=== PATIENT | male | born 1965 | race Caucasian/White ===

== ENCOUNTER 2020-12-24 09:26 | Inpatient (IN) | payer BC ==
[2020-12-24] MEDS ORDERED: SODIUM CHLORIDE 0.9% 500 ML 500 ML IV STA (09:51)
--- NOTE | 2020-12-24 09:51 | ED ---
General Adult HPI - General Chief complaint: Arrhythmia/Palpitations Stated complaint: A fib, chest pain Time Seen by Provider: 12/24/20 09:30 Source: patient, RN notes reviewed, old records reviewed Mode of arrival: ambulatory Limitations: no limitations - History of Present Illness Initial comments: This is a 55-year-old male presents emergency Department complaining that he is in atrial fibrillation again. Patient states he was diagnosed with A. fib about 20 years ago but never put on any medication. Patient states occasionally goes and out of it but this morning was at 160 beats a minute so he became concerned. Patient states he woke up this morning was nauseated and vomited times one and then noticed his heart racing. Patient states is not short of breath or having any difficulty breathing. Patient denies any abdominal pain. Patient denies any nausea currently. Patient denies any recent fever chills or cough. Patient states she's nervous about the A. fib going real fast scan because he has to go to work. The patient's pulses about 115. - Related Data Home Medications Medication Instructions Recorded Confirmed Dextroamphetamine/Amphetamine 20 mg PO BID 12/24/20 12/24/20 [Adderall] INSULIN ASPART (NovoLOG) [NovoLOG 10 unit SQ AC-TID 12/24/20 12/24/20 (formulary)] Insulin Glargine [Lantus Vial] 50 unit SQ HS 12/24/20 12/24/20 predniSONE 10 mg PO DAILY 12/24/20 12/24/20 Allergies Allergy/AdvReac Type Severity Reaction Status Date / Time No Known Allergies Allergy Verified 12/24/20 10:52 Review of Systems ROS Statement: Those systems with pertinent positive or pertinent negative responses have been documented in the HPI. ROS Other: All systems not noted in ROS Statement are negative. Past Medical History Past Medical History: Atrial Fibrillation, Diabetes Mellitus History of Any Multi-Drug Resistant Organisms: None Reported Past Surgical History: Appendectomy, Orthopedic Surgery Additional Past Surgical History / Comment(s): R hip Past Psychological History: No Psychological Hx Reported Smoking Status: Current every day smoker Past Alcohol Use History: None Reported Past Drug Use History: Marijuana General Exam - General Exam Comments Initial Comments: GENERAL: Patient is well-developed and well-nourished. Patient is nontoxic and well- hydrated and is in mild distress. ENT: Neck is soft and supple. No significant lymphadenopathy is noted. Oropharynx is clear. Moist mucous membranes. Neck has full range of motion without eliciting any pain. EYES: The sclera were anicteric and conjunctiva were pink and moist. Extraocular movements were intact and pupils were equal round and reactive to light. Eyelids were unremarkable. PULMONARY: Unlabored respirations. Good breath sounds bilaterally. No audible rales rhonchi or wheezing was noted. CARDIOVASCULAR: Patient's heart rates about 115 beats a minute and it is irregular. ABDOMEN: Soft and nontender with normal bowel sounds. SKIN: Skin is clear with no lesions or rashes and otherwise unremarkable. NEUROLOGIC: Patient is alert and oriented x3. Cranial nerves II through XII are grossly intact. Motor and sensory are also intact. Normal speech, volume and content. Symmetrical smile. MUSCULOSKELETAL: Normal extremities with adequate strength and full range of motion. LYMPHATICS: No significant lymphadenopathy is noted PSYCHIATRIC: Normal psychiatric evaluation. Limitations: no limitations Course Vital Signs 12/24/20 12/24/20 09:32 10:10 Temperature 98 F Pulse Rate 103 H 92 Respiratory 18 18 Rate Blood Pressure 115/67 111/78 O2 Sat by Pulse 99 98 Oximetry Medical Decision Making - Medical Decision Making EKG shows atrial fibrillation with occasional PVC at 91 bpm QRS is 80 QT interval is 226 QTC is 364. Patient has some peaked T waves in the precordial leads. Patient's chest x-ray shows a large bleb in the left upper lobe I spoke with Dr. Spencer she agreed to admit the patient admitted the patient wrote admitting orders. I started the patient on Cardizem and heparin. I continued Cardizem floor. - Lab Data Result diagrams: 12/24/20 09:58 12/24/20 09:58 Lab Results 12/24/20 12/24/20 12/24/20 Range/Units 09:58 09:58 09:58 WBC 10.7 H (3.8-10.6) k/uL RBC 4.74 (4.30-5.90) m/uL Hgb 15.5 (13.0-17.5) gm/dL Hct 46.0 (39.0-53.0) % MCV 97.1 (80.0-100.0) fL MCH 32.7 (25.0-35.0) pg MCHC 33.7 (31.0-37.0) g/dL RDW 12.8 (11.5-15.5) % Plt Count 412 (150-450) k/uL MPV 7.5 Neutrophils % 60 % Lymphocytes % 30 % Monocytes % 5 % Eosinophils % 3 % Basophils % 1 % Neutrophils # 6.3 (1.3-7.7) k/uL Lymphocytes # 3.2 (1.0-4.8) k/uL Monocytes # 0.5 (0-1.0) k/uL Eosinophils # 0.3 (0-0.7) k/uL Basophils # 0.1 (0-0.2) k/uL PT 9.5 (9.0-12.0) sec INR 0.9 (<1.2) APTT 21.7 L (22.0-30.0) sec Sodium 134 L (137-145) mmol/L Potassium 4.3 (3.5-5.1) mmol/L Chloride 101 (98-107) mmol/L Carbon Dioxide 27 (22-30) mmol/L Anion Gap 6 mmol/L BUN 14 (9-20) mg/dL Creatinine 0.74 (0.66-1.25) mg/dL Est GFR (CKD-EPI)AfAm >90 (>60 ml/min/1.73 sqM) Est GFR (CKD-EPI)NonAf >90 (>60 ml/min/1.73 sqM) Glucose 257 H (74-99) mg/dL Calcium 9.9 (8.4-10.2) mg/dL Magnesium 1.8 (1.6-2.3) mg/dL Total Bilirubin 0.5 (0.2-1.3) mg/dL AST 19 (17-59) U/L ALT 10 (4-49) U/L Alkaline Phosphatase 93 (38-126) U/L Troponin I (0.000-0.034) ng/mL Total Protein 6.6 (6.3-8.2) g/dL Albumin 3.8 (3.5-5.0) g/dL TSH 1.210 (0.465-4.680) mIU/L 12/24/20 Range/Units 09:58 WBC (3.8-10.6) k/uL RBC (4.30-5.90) m/uL Hgb (13.0-17.5) gm/dL Hct (39.0-53.0) % MCV (80.0-100.0) fL MCH (25.0-35.0) pg MCHC (31.0-37.0) g/dL RDW (11.5-15.5) % Plt Count (150-450) k/uL MPV Neutrophils % % Lymphocytes % % Monocytes % % Eosinophils % % Basophils % % Neutrophils # (1.3-7.7) k/uL Lymphocytes # (1.0-4.8) k/uL Monocytes # (0-1.0) k/uL Eosinophils # (0-0.7) k/uL Basophils # (0-0.2) k/uL PT (9.0-12.0) sec INR (<1.2) APTT (22.0-30.0) sec Sodium (137-145) mmol/L Potassium (3.5-5.1) mmol/L Chloride (98-107) mmol/L Carbon Dioxide (22-30) mmol/L Anion Gap mmol/L BUN (9-20) mg/dL Creatinine (0.66-1.25) mg/dL Est GFR (CKD-EPI)AfAm (>60 ml/min/1.73 sqM) Est GFR (CKD-EPI)NonAf (>60 ml/min/1.73 sqM) Glucose (74-99) mg/dL Calcium (8.4-10.2) mg/dL Magnesium (1.6-2.3) mg/dL Total Bilirubin (0.2-1.3) mg/dL AST (17-59) U/L ALT (4-49) U/L Alkaline Phosphatase (38-126) U/L Troponin I <0.012 (0.000-0.034) ng/mL Total Protein (6.3-8.2) g/dL Albumin (3.5-5.0) g/dL TSH (0.465-4.680) mIU/L Critical Care Time Critical Care Time: Yes Total Critical Care Time: 35 Disposition Clinical Impression: Atrial fibrillation with rapid ventricular response Disposition: ADMITTED IP TO THIS [facility] Referrals: Christina Epps MD [Primary Care Provider] - 1-2 days Time of Disposition: 11:49
[2020-12-24 10:18] LABS: Basophils # (A) 0.1 k/uL (0-0.2); Basophils % (A) 1 %; Eosinophils # (A) 0.3 k/uL (0-0.7); Eosinophils % (A) 3 %; HGB 15.5 gm/dL (13.0-17.5); Lymphocytes # (A) 3.2 k/uL (1.0-4.8); Lymphocytes % (A) 30 %; MCH 32.7 pg (25.0-35.0); MCHC 33.7 g/dL (31.0-37.0); MCV 97.1 fL (80.0-100.0); Mean Platelet Volume 7.5; Monocytes # (A) 0.5 k/uL (0-1.0); Monocytes % (A) 5 %; Neutrophils # (A) 6.3 k/uL (1.3-7.7); Neutrophils % (A) 60 %; Platelet Count 412 k/uL (150-450); RBC 4.74 m/uL (4.30-5.90); RDW 12.8 % (11.5-15.5); WBC 10.7 k/uL (3.8-10.6)
[2020-12-24 10:25] LABS: ALT 10 U/L (4-49); AST 19 U/L (17-59); African American GFR (CKD) >90 (>60 ml/min/1.73 sqM); Albumin 3.8 g/dL (3.5-5.0); Alkaline Phosphatase 93 U/L (38-126); Anion Gap 6 mmol/L; Blood Urea Nitrogen 14 mg/dL (9-20); Calcium 9.9 mg/dL (8.4-10.2); Carbon Dioxide 27 mmol/L (22-30); Chloride 101 mmol/L (98-107); Glucose 257 mg/dL (74-99); Magnesium 1.8 mg/dL (1.6-2.3); Non-African American GFR(CKD) >90 (>60 ml/min/1.73 sqM); Potassium 4.3 mmol/L (3.5-5.1); Sodium 134 mmol/L (137-145); Total Bilirubin 0.5 mg/dL (0.2-1.3); Total Protein 6.6 g/dL (6.3-8.2)
[2020-12-24 10:40] LABS: INR 0.9 (<1.2); Prothrombin Time 9.5 sec (9.0-12.0)
[2020-12-24 10:48] LABS: Partial Thromboplastin Time 21.7 sec (22.0-30.0)
[2020-12-24] MEDS ORDERED: HEPARIN SODIUM 1,000 UN/ML (10ML VL) IV ONE (10:56)
[2020-12-24] MEDS ORDERED: DILTIAZEM 125 MG in SODIUM CHLORIDE 0.9% 100 ML IV SCH (11:00)
[2020-12-24] MEDS ORDERED: HEPARIN SOD,PORK IN 0.45% NACL 25,000 UNIT in 0.45% NACL 1 250ML.BAG IV SCH (11:00)
--- NOTE | 2020-12-24 11:27 | XR ---
EXAMINATION TYPE: XR chest 2V DATE OF EXAM: 12/24/2020 COMPARISON: NONE HISTORY: Dysrhythmia and shortness of breath TECHNIQUE: Frontal and lateral views of the chest are obtained. FINDINGS: Apical bullous disease is greater on the left than on the right. Prominent lung findings a re consistent with underlying COPD. No evident airspace disease, pneumothorax, or pleural effusion. S uspect scarring present within the lungs. Heart is small. There are overlying leads. IMPRESSION: Emphysema
[2020-12-24] MEDS ORDERED: NITROGLYCERIN SL TABS 0.4 MG TAB SUBLINGUAL PRN (11:50)
[2020-12-24] MEDS: NITROGLYCERIN OINT 1 INCH/GM PACKET TOPICAL SCH ×3 (12:12→22:44)
[2020-12-24 12:18] LABS: Amphetamine Screen,Urine Detected (NotDetected); Barbiturate Screen,Urine Not Detected (NotDetected); Benzodiazepines Screen,Urine Not Detected (NotDetected); Cocaine Screen,Urine Not Detected (NotDetected); Methadone Screen, Urine Not Detected (NotDetected); Opiate Screen,Urine Not Detected (NotDetected); Oxycodone Screen, Urine Not Detected (NotDetected); Phencyclidine Screen,Urine Not Detected (NotDetected); Tricyclic Antidepressant,Urine Not Detected (NotDetected); Urn Cannabinoid Scrn Detected (NotDetected)
[2020-12-24 17:29] LABS: Glucose,Whole Blood 162 mg/dL (75-99)
[2020-12-24] MEDS: INSULIN ASPART (NovoLOG) 100 UNIT/ML VIAL SQ SCH ×3 (18:11→20:44)
[2020-12-24] MEDS ORDERED: IPRATROPIUM-ALBUTEROL 3 ML NEB INHALATION PRN (19:49)
[2020-12-24] MEDS ORDERED: HEPARIN SODIUM 1,000 UN/ML (10ML VL) IV PRN (19:51)
--- NOTE | 2020-12-24 20:22 | P.HPIM ---
<Murphy Yuan - Last Filed: 12/24/20 19:43> History of Present Illness H&P Date: 12/24/20 History of Presenting Illness: Patient is a 55-year-old male with a past medical history of COPD not home oxygen dependent, paroxysmal atrial fibrillation not on anticoagulation, insulin-dependent diabetes mellitus, ADHD, nicotine dependence, and marijuana use. He presented to the emergency department with a chief complaint of nausea and vomiting. Patient reports awakening this morning and not feeling right, he reports nausea followed by episode of vomiting and realized that his heart was racing and was concerned that he was back into atrial fibrillation. Patient reports he has been in and out of atrial fibrillation for over 20 years. He was seen and fully evaluated in the emergency department and initially found to be in atrial fibrillation with RVR and reported rate greater than 120. EKG showing atrial fibrillation at 91 bpm. Chest x-ray negative for acute cardiopulmonary process positive for COPD with large left upper lobe bleb. Labs reviewed, CBC revealing mild leukocytosis with WBC count of 10.7, BMP showing pseudohyponatremia with sodium 134, and glucose of 257 with corrected sodium of 137. Troponins trended and were negative at less than 0.0123 draws. Urine drug screen positive for amphetamines and marijuana. Covid PCR negative. Patient was started on heparin infusion and Cardizem infusion and the emergency department and admitted for services with consultation to cardiology. Upon examination at bedside, patient denied having any current complaints at this time. He reports nausea has resolved and denies having any headache, lightheadedness, dizziness, changes in vision or hearing, chest pain or palpitations, shortness of breath, or experiencing any numbness/tingling/weakness in his extremities. Patient denies having any recent illnesses/infections. Denies daily alcohol use, reports occasional marijuana use, denies any other drug use. Review of systems: Pertinent positives and negatives as discussed in HPI, a complete review of systems was performed and all other systems are negative. Physical exam: Vital signs reviewed and stable. General: Nontoxic, no distress and appears stated age. Derm: Skin warm and dry, normal coloration for ethnicity. Head: Atraumatic, normocephalic and symmetric. Eyes: EOMs intact, no lid lag, and anicteric sclera Mouth: no lip lesions, mucus membranes moist Cardiovascular: Irregularly irregular rhythm, normal S1S2, no murmur, positive posterior tibial pulses bilaterally, and cap refill < 2 seconds. Lungs: Respirations even, regular, and unlabored on room air. Lungs diminished, however no rhonchi, no rales, no wheezing, and no accessory muscle usage. Abdominal: soft, nontender to palpation, no guarding, no appreciable organomegaly Ext: ROM intact. No gross muscle atrophy, no edema, no contractures Neuro: Speech clear, face symmetrical and CN II-XII grossly intact with no noted focal neuro deficits Psych: Alert and oriented to person, place, time, and situation. Appropriate and pleasant affect. Assessment and Plan of Care: Atrial fibrillation with RVR -[id number] Score 1 -Pt started on Heparin infusion, we will continue at this time and defer decision of tank terminal gauger anticoagulation to cardiology. -Continue Cardizem infusion -Continuous telemetry monitoring -Consult placed cardiology, appreciate further recommendations -Echocardiogram COPD not in acute exacerbation -Continue daily prednisone 10 mg -DuoNeb as needed for wheezing and/or shortness of breath -Incentive spirometry Insulin-dependent diabetes mellitus -Glycemic protocol and continue NovoLog 10 units 3 times daily with meals, Levemir 50 units nightly, and place patient on sliding scale to maintain tight glycemic control throughout hospitalization. ADHD Hold Adderall at this time, discussed with patient possibility of medication changes as he may need a non-stimulant medication. Nicotine dependence Continue to provide education and encouragement on the importance of smoking cessation and risks of continued use. Nicotine patch Marijuana use continue to encourage and educate on the importance of cessation and risks of continued use with long-standing COPD/emphysema. The patient is admitted with an anticipated greater than 2 midnight stay for evaluation of atrial fibrillation with RVR CODE STATUS: Full code DVT prophylaxis: Heparin Discussed with: Patient Anticipated discharge date: Clinical course to determine Anticipated discharge place: Home A total of 45 minutes was spent on the care of this complex patient more than 50% of the time was spent in counseling and care coordination. Past Medical History Past Medical History: Atrial Fibrillation, Diabetes Mellitus History of Any Multi-Drug Resistant Organisms: None Reported Past Surgical History: Appendectomy, Orthopedic Surgery Additional Past Surgical History / Comment(s): R hip Past Psychological History: No Psychological Hx Reported Smoking Status: Current every day smoker Past Alcohol Use History: None Reported Past Drug Use History: Marijuana Medications and Allergies Home Medications Medication Instructions Recorded Confirmed Type Dextroamphetamine/Amphetamine 20 mg PO BID 12/24/20 12/24/20 History [Adderall] INSULIN ASPART (NovoLOG) [NovoLOG 10 unit SQ AC-TID 12/24/20 12/24/20 History (formulary)] Insulin Glargine [Lantus Vial] 50 unit SQ HS 12/24/20 12/24/20 History predniSONE 10 mg PO DAILY 12/24/20 12/24/20 History Allergies Allergy/AdvReac Type Severity Reaction Status Date / Time No Known Allergies Allergy Verified 12/24/20 10:52 Physical Exam Vitals: Vital Signs Temp Pulse Resp BP Pulse Ox 12/24/20 10:10 92 18 111/78 98 12/24/20 09:32 98 F 103 H 18 115/67 99 Intake and Output 12/23/20 12/24/20 12/24/20 22:59 06:59 14:59 Other: Weight 74.843 kg Results CBC & Chem 7: 12/24/20 09:58 12/24/20 09:58 Labs: Abnormal Lab Results - Last 24 Hours (Table) 12/24/20 12/24/20 12/24/20 Range/Units 09:58 09:58 09:58 WBC 10.7 H (3.8-10.6) k/uL APTT 21.7 L (22.0-30.0) sec Sodium (137-145) mmol/L Glucose (74-99) mg/dL Ur Amphetamines Screen Detected H (NotDetected) U Marijuana (THC) Screen Detected H (NotDetected) 12/24/20 Range/Units 09:58 WBC (3.8-10.6) k/uL APTT (22.0-30.0) sec Sodium 134 L (137-145) mmol/L Glucose 257 H (74-99) mg/dL Ur Amphetamines Screen (NotDetected) U Marijuana (THC) Screen (NotDetected) <Matthew Marrero - Last Filed: 12/25/20 01:35> History of Present Illness Patient seen and examined independently. Patient was also seen by Murphy Yuan NP and case was discussed. I am in agreement with subjective, physical exam, assessment and plan as written above and amended below. General: [non toxic], [no distress], [appears at stated age] Derm: [warm], [dry] Head: [atraumatic], [normocephalic], [symmetric] Eyes: [EOMI], [no lid lag], [anicteric sclera] Mouth: [no lip lesion], [mucus membranes moist] Cardiovascular: Irregularly irregular, [no murmur], [positive posterior tibial pulse bilateral], Lungs: [CTA bilateral], [no rhonchi, no rales] , [no accessory muscle use] Abdominal: [soft], [ nontender to palpation], [no guarding], [no appreciable organomegaly] Ext: [no gross muscle atrophy], [no edema], [no contractures] Neuro: [ CN II-XI grossly intact], [no focal neuro deficits] Psych: [Alert], [oriented], [appropriate affect] Physical Exam Vitals: Vital Signs Temp Pulse Pulse Resp BP BP Pulse Ox 12/24/20 23:49 97.8 F 83 16 108/63 97 12/24/20 20:00 97.9 F 98 16 119/79 99 12/24/20 15:35 84 20 101/77 98 12/24/20 12:30 95 18 112/77 98 12/24/20 10:10 92 18 111/78 98 12/24/20 09:32 98 F 103 H 18 115/67 99 Intake and Output 12/24/20 12/24/20 12/25/20 14:59 22:59 06:59 Intake Total 561.788 Balance 561.788 Intake: Intake, IV Titration 76.788 Amount Heparin Sod,Pork in 0.45% 76.788 NaCl 25,000 unit In 0.45 % NaCl 1 250ml.bag @ 12 UNITS/KG/HR 8.981 mls/hr IV .Q24H [facility] Rx#: [id number] Oral 485 Other: Voiding Method Toilet # Voids 1 Weight 74.843 kg Results CBC & Chem 7: 12/24/20 09:58 12/24/20 09:58 Labs: Abnormal Lab Results - Last 24 Hours (Table) 12/24/20 12/24/20 12/24/20 Range/Units 09:58 09:58 09:58 WBC 10.7 H (3.8-10.6) k/uL APTT 21.7 L (22.0-30.0) sec Sodium (137-145) mmol/L Glucose (74-99) mg/dL POC Glucose (mg/dL) (75-99) mg/dL Ur Amphetamines Screen Detected H (NotDetected) U Marijuana (THC) Screen Detected H (NotDetected) 12/24/20 12/24/20 12/24/20 Range/Units 09:58 17:27 20:39 WBC (3.8-10.6) k/uL APTT (22.0-30.0) sec Sodium 134 L (137-145) mmol/L Glucose 257 H (74-99) mg/dL POC Glucose (mg/dL) 162 H 147 H (75-99) mg/dL Ur Amphetamines Screen (NotDetected) U Marijuana (THC) Screen (NotDetected)
[2020-12-24 20:41] LABS: Glucose,Whole Blood 147 mg/dL (75-99)
[2020-12-24] MEDS ORDERED: INSULIN DETEMIR (LEVEMIR) 100 UNIT/ML SYR SQ SCH (21:00)
[2020-12-24 23:50] VITALS: TEMP 97.8
[2020-12-25 07:00] LABS: Glucose,Whole Blood 120 mg/dL (75-99)
[2020-12-25] MEDS: NITROGLYCERIN OINT 1 INCH/GM PACKET TOPICAL SCH (07:06)
[2020-12-25] MEDS: INSULIN ASPART (NovoLOG) 100 UNIT/ML VIAL SQ SCH ×2 (07:06→08:10)
[2020-12-25 08:36] VITALS: BP 113/64; PULSE 85; RESP 16
[2020-12-25] MEDS ORDERED: NICOTINE 21MG/24HR PATCH TRANSDERM SCH (09:00)
[2020-12-25] MEDS ORDERED: predniSONE 10 MG TAB PO SCH (09:00)
[2020-12-25] MEDS ORDERED: ASPIRIN 325 MG TAB PO SCH (09:00)
[2020-12-25] MEDS ORDERED: METOPROLOL TARTRATE 12.5 MG TAB PO SCH (09:30)
[2020-12-25 11:42] LABS: Glucose,Whole Blood 271 mg/dL (75-99)
--- NOTE | 2020-12-25 13:59 | P.DS ---
<Murphy Yuan - Last Filed: 12/25/20 13:59> Providers Expected date of discharge: 12/25/20 Hospital Course: Discharge Diagnosis: Atrial fibrillation with RVR COPD not in acute exacerbation Insulin-dependent diabetes mellitus ADHD Nicotine dependence Marijuana use Hospital Course: Patient is a 55-year-old male with a past medical history of COPD not home oxygen dependent, paroxysmal atrial fibrillation not on anticoagulation, insulin-dependent diabetes mellitus, ADHD, nicotine dependence, and marijuana use. He presented to the emergency department with a chief complaint of nausea and vomiting. Patient reports awakening this morning and not feeling right, he reports nausea followed by episode of vomiting and realized that his heart was racing and was concerned that he was back into atrial fibrillation. Patient reports he has been in and out of atrial fibrillation for over 20 years. He was seen and fully evaluated in the emergency department and initially found to be in atrial fibrillation with RVR and reported rate greater than 120. EKG showing atrial fibrillation at 91 bpm. Chest x-ray negative for acute cardiopulmonary process positive for COPD with large left upper lobe bleb. Labs reviewed, CBC revealing mild leukocytosis with WBC count of 10.7, BMP showing pseudohyponatremia with sodium 134, and glucose of 257 with corrected sodium of 137. Troponins trended and were negative at less than 0.0123 draws. Urine drug screen positive for amphetamines and marijuana. Covid PCR negative. Patient was started on heparin infusion and Cardizem infusion and the emergency department and admitted for services with consultation to cardiology. Echocardiogram completed and pending results. Patient converted to normal sinus rhythm this morning. Cardizem infusion discontinued patient placed on metoprolol 12.5 mg twice a day. Patient very anxious and verbally abusive towards nursing staff as he was very angry nursing staff would not allow him to go outside and smoke a cigarette. Went to bedside to talk with patient patient continued to be verbally abusive using foul language and expressed anxiety and agitation because he was not allowed to go outside to smoke and come back to the hospital. Patient repeatedly threatening to leave AMA. Discussed case with senior clinical data analyst and Heparin infusion discontinued and patient placed on aspirin 325 mg daily secondary to [id number] Score 1. Patient to be discharged home on metoprolol 12.5 mg daily and aspirin 325 mg daily. Patient instructed he will need to follow up outpatient with cardiology and his PCP next week to discuss echocardiogram results, as these were not available at the time of his discharge. Patient strongly encouraged to stop smoking and instructed that he will need to discontinue Adderall and discuss with his primary care doctor alternative non-stimulant medications to treat his ADHD. Physical exam: Vital signs reviewed and stable. General: Nontoxic, no distress and appears stated age. Derm: Skin warm and dry, normal coloration for ethnicity. Head: Atraumatic, normocephalic and symmetric. Eyes: EOMs intact, no lid lag, and anicteric sclera Mouth: no lip lesions, mucus membranes moist Cardiovascular: Regular rate and rhythm, normal S1S2, no murmur, positive posterior tibial pulses bilaterally, and cap refill < 2 seconds. Lungs: Respirations even, regular, and unlabored on room air. Lungs diminished, however no rhonchi, no rales, no wheezing, and no accessory muscle usage. Abdominal: soft, nontender to palpation, no guarding, no appreciable organomegaly Ext: ROM intact. No gross muscle atrophy, no edema, no contractures Neuro: Speech clear, face symmetrical and CN II-XII grossly intact with no noted focal neuro deficits Psych: Alert and oriented to person, place, time, and situation. Appropriate and pleasant affect. A total of 45 minutes of time were spent preparing this complex discharge summary. Patient Condition at Discharge: Stable Plan - Discharge Summary New Discharge Prescriptions: New Aspirin 325 mg PO DAILY 30 Days #30 tab Metoprolol Tartrate [Lopressor] 12.5 mg PO BID 30 Days #60 tab Pantoprazole [Protonix] 40 mg PO DAILY 30 Days #30 tab Continue predniSONE 10 mg PO DAILY Insulin Glargine [Lantus Vial] 50 unit SQ HS INSULIN ASPART (NovoLOG) [NovoLOG (formulary)] 10 unit SQ AC-TID Discontinued Dextroamphetamine/Amphetamine [Adderall] 20 mg PO BID Discharge Medication List INSULIN ASPART (NovoLOG) [NovoLOG (formulary)] 10 unit SQ AC-TID 12/24/20 [History] Insulin Glargine [Lantus Vial] 50 unit SQ HS 12/24/20 [History] predniSONE 10 mg PO DAILY 12/24/20 [History] Aspirin 325 mg PO DAILY 30 Days #30 tab 12/25/20 [Rx] Metoprolol Tartrate [Lopressor] 12.5 mg PO BID 30 Days #60 tab 12/25/20 [Rx] Pantoprazole [Protonix] 40 mg PO DAILY 30 Days #30 tab 12/25/20 [Rx] Follow up Appointment(s)/Referral(s): Sam Beltre DO [STAFF PHYSICIAN] - 1 Week Christina Epps MD [Primary Care Provider] - 1-2 days Activity/Diet/Wound Care/Special Instructions: Activity: As tolerated. Take breaks as needed. Diet: Heart healthy and carb consistent diet. Avoid salts, or foods with hidden salts such as canned or boxed foods and frozen dinners. Extra salt makes your heart work harder and traps the fluid in your body for longer. Special Instructions: Take all of your medications as directed and remember to keep all of your doctor's appointments and follow-up as needed. It is important for you to follow up with your primary doctor and senior clinical data analyst as we discussed to go over the results of your echocardiogram, as these are not available at this time. It is also highly recommended that you discontinue Adderall and discuss with your primary doctor alternative non-stimulant medications to treat your ADHD. I also wish you the best of luck on your journey to smoking cessation. Thank you for allowing us to participate in your care, it was truly a pleasure having you for our patient!!! Discharge Disposition: HOME SELF-CARE <Marta Spencer - Last Filed: 12/25/20 19:11> Providers Date of admission: 12/24/20 11:53 Attending physician: Matthew Marrero MD Consults: 12/24/20 11:51 Consult Physician Urgent Consulting Provider: [facility] Consult Reason/Comments: A. fib with rapid ventricular response Do you want consulting provider notified?: Yes Primary care physician: Christina Epps MD Hospital Course: Murphy Yuan NP rendered care for this patient independently, reviewed the findings and plan as documented in the note above. I did not physically speak with or examine the patient on this date.
--- NOTE | 2020-12-25 17:00 | ECHOF ---
Referral Reason: MEASUREMENTS -------- HEIGHT: 185.4 cm WEIGHT: 74.8 kg BP: 112/77 RVIDd: 2.7 cm (< 3.3) IVSd: 1.1 cm (0.6 - 1.1) LVIDd: 3.7 cm (3.9 - 5.3) LVPWd: 1.0 cm (0.6 - 1.1) IVSs: 1.2 cm LVIDs: 2.4 cm LVPWs: 1.7 cm LAESV Index (A-L): 18.87 ml/m Ao Diam: 3.4 cm (2.0 - 3.7) AV Cusp: 2.2 cm (1.5 - 2.6) MV EXCURSION: 24.252 mm (> 18.000) MV EF SLOPE: 79 mm/s (70 - 150) EPSS: 0.3 cm RAP: 5.00 mmHg RVSP: 21.70 mmHg FINDINGS -------- Atrial fibrillation. This was a technically good study. The left ventricular size is normal. There is borderline concentric left ventricular hypertrophy. Overall left ventricular systolic function is normal with, an EF between 55 - 60 %. Left ventricul ar fillimg pressure cannot be estimated due to Atrial fibrillation. The right ventricle is normal in size. Normal LA size by volume 22+/-6 ml/m2. The right atrial size is normal. Interatrial and interventricular septum intact. The aortic valve is trileaflet and appears structurally normal. There is no evidence of aortic regu rgitation. There is no evidence of aortic stenosis. No mitral regurgitation. Mild tricuspid regurgitation present. There is no evidence of pulmonary hypertension. The right v entricular systolic pressure, as measured by Doppler, is 21.70mmHg. There is no pulmonic regurgitation present. The aortic root size is normal. The inferior vena cava is mildly dilated. There is no pericardial effusion. CONCLUSIONS -------- 1. The left ventricular size is normal. 2. There is borderline concentric left ventricular hypertrophy. 3. Overall left ventricular systolic function is normal with, an EF between 55 - 60 %. 4. Left ventricular fillimg pressure cannot be estimated due to Atrial fibrillation. 5. Mild tricuspid regurgitation present. 6. The inferior vena cava is mildly dilated. FIRST DYER: Yasmin Cooper [facility]
[2020-12-25 18:01] LABS: Chol/HDL Ratio 2.23 Ratio; LDL Cholesterol,Calculated 88.2 mg/dL (0.0-131.0); VLDL Calculation 35.8 mg/dL (5.00-40.00)
== END 2020-12-25 12:22 | disposition home or self-care (01) | DRG 310 ==
LOC: EC 09:26 → 3SCARD 11:53
PROVIDERS: ADMIT Internal Medicine; ATTEND Internal Medicine
DX: I48.0 Paroxysmal atrial fibrillation (principal); J43.9 Emphysema, unspecified; R07.9 Chest pain, unspecified; E11.9 Type 2 diabetes mellitus without complications; D72.829 Elevated white blood cell count, unspecified; R11.2 Nausea with vomiting, unspecified; R00.0 Tachycardia, unspecified; Z20.822 Contact with and (suspected) exposure to COVID-19; F17.210 Nicotine dependence, cigarettes, uncomplicated; F41.9 Anxiety disorder, unspecified; F90.9 Attention-deficit hyperactivity disorder, unspecified type; I49.3 Ventricular premature depolarization; Z79.82 Long term (current) use of aspirin; Z79.4 Long term (current) use of insulin; Z79.899 Other long term (current) drug therapy; Z99.81 Dependence on supplemental oxygen; Z71.6 Tobacco abuse counseling; Z90.49 Acquired absence of other specified parts of digestive tract
CPT/HCPCS: 36415; 71046; 80053; 80061; 80306; 83735; 84443; 84484; 85025; 85610; 85730; 87635; 93005; 93306; 96361; 96374; 96375; 99291

== ENCOUNTER → 2024-02-29 | Outpatient (CLI) | payer BC ==
--- NOTE | 2024-02-29 21:16 | CTL ---
EXAMINATION TYPE: CT Low Dose Lung DATE OF EXAM: 02/29/2024 5:23 PM COMPARISON: None. CLINICAL INDICATION: Male, 58 years old with history of Z12.2 LUNG CA SCR F17.210 CURRENT SMOKER, per esa tobacco use, Lung cancer screening, History of tobacco use. TECHNIQUE: Low dose computed tomography scan was performed through the chest at 1 mm thick sections a nd reconstructed images in the coronal plane at 1 mm thick sections. Contrast used: mL of , (none if empty) Oral contrast used: (none if empty) CT DLP: 105.9 mGycm, Automated exposure control for dose reduction was used. CT CTDI: 2.4 mGy, Automated exposure control for dose reduction was used. SCREENING VISIT: CT DIAGNOSTIC QUALITY: Satisfactory FINDINGS: LUNG NODULES: None. Some thickening lies along the major fissure at the left apex LUNGS: COPD: Severity: Severe. Very large bulla and blebs are at the apex with additional emphysematous tatum ges through the anterior mid lungs. Fibrosis: Severity: None Lymph nodes: None Other findings: None RIGHT PLEURAL SPACE: Effusion: None Calcification: None Thickening: None Pneumothorax: None LEFT PLEURAL SPACE: Effusion: None Calcification: None Thickening: None Pneumothorax: None HEART: Other: Ascending thoracic aorta at the level the main pulmonary artery measures 3.2 cm. The main pul monary artery at the bifurcation measures2.4 cm. Heart Size: Normal Coronary calcification: Minimal Pericardial effusion: None OTHER FINDINGS: Upper abdomen: Normal Bony thorax: Normal Supraclavicular region: Normal IMPRESSION: 1. No suspicious acute changes to suggest primary or metastatic neoplasm. 2. Advanced severe emphysematous change FOLLOW UP CT CHEST RECOMMENDATION: Follow-up low-dose CT chest one year CT LUNG RAD: Lung-Rad 2 Benign Appearance or Behavior [facility], , 02/29/2024 9:14 PM
== END | disposition home or self-care (01) ==
LOC: RADCTMAIN 16:30
PROVIDERS: ATTEND Family Medicine
DX: Z12.2 Encounter for screening for malignant neoplasm of respiratory organs (principal); F17.210 Nicotine dependence, cigarettes, uncomplicated; J43.9 Emphysema, unspecified
CPT/HCPCS: 71271